=== PATIENT | male | born 2000 | race Two or more races ===

== ENCOUNTER 2020-08-26 12:47 | Emergency (ER) | payer OTHER ==
[~2020-08-26] VITALS: Ht 175.3 cm; Wt 88.8 kg
[2020-08-26 12:47] VITALS: BP 134/84
--- NOTE | 2020-08-26 14:07 | REPVR ---
PROCEDURE INFORMATION: Exam: XR Left Hip with Pelvis when Performed Exam date and time: 08/26/2020 1:11 PM Age: 20 years old Clinical indication: Other: Pain; Additional info: Increased pain TECHNIQUE: Imaging protocol: XR Left hip with pelvis when performed. Views: 2 or 3 views. COMPARISON: No relevant prior studies available. FINDINGS: Bones/joints: There is no focal bone lesion. There is no joint compartment narrowing or evidence of erosion. There is no fracture or dislocation. Soft tissues: Unremarkable. IMPRESSION: No bone or joint abnormality is detected. Electronically signed by: Rufina Balderas On 08/26/2020 14:06:46 PM
[2020-08-26] MEDS ORDERED: DICYCLOMINE INJ 20MG/2ML (J0500) IM ONE (14:15)
[2020-08-26] MEDS ORDERED: IBUPROFEN 800 MG TAB PO ONE (14:30)
== END 2020-08-26 14:48 | disposition home or self-care (01) ==
LOC: M ED 12:47
DX: M25.552 Pain in left hip (principal); G89.29 Other chronic pain